=== PATIENT | female | born 1960 | race Caucasian/White ===

== ENCOUNTER → 2016-12-11 | Outpatient (CLI) | payer OTHER ==
--- NOTE | 2016-12-11 11:05 | MRI ---
Study: MRI of the right wrist. MRI of the right hand Indication: RT WRIST PAIN; HAND PAIN Technique: Multiplanar, multi sequence MRI of the right wrist and MRI of the right hand were obtained without intravenous contrast. Comparison: None. Findings: No acute fracture or osseous contusion of the right hand or wrist. Severe 1st CMC joint osteoarthritis with complete grade 4 chondral loss. There are patchy areas of cortical remodeling and subchondral cystic change. Associated small joint effusion noted as well. In addition, there is mild to moderate osteoarthritic change at the articulation of the base of the 2nd metacarpal with the ulnar margin of the trapezium as well as at its articulation with the trapezoid. Degenerative partial-thickness tearing central substance scapholunate ligament suspected without full-thickness transsection or widening of the interval. There is mild to moderate osteoarthritic change at the scapholunate joint. Lunotriquetral ligament intact. Perforation radial margin central substance TFC suspected. 4 mm negative ulnar variance without features of ulnar impaction. Mild distal radioulnar joint osteoarthritis. Extensor carpi ulnaris tendinosis with ulnar subluxation onto the ulnar styloid. No tear. Otherwise, extensor tendons, flexor tendons, flexor retinaculum, median nerve, and ulnar nerve are unremarkable. Mild osteoarthritis 1st MTP joint and 1st IP joint with chondral thinning and tiny joint line osteophytes. More pronounced moderate changes noted at the 5th DIP joint. No osseous erosions. Radial and ulnar collateral ligaments throughout the hand appear intact. Impression: Multifocal osteoarthritic changes throughout the hand and wrist with changes most pronounced at the 1st CMC joint where there are severe changes. No osseous erosions. No acute fracture. Degenerative partial-thickness tearing scapholunate ligament. Tiny perforation radial margin TFC. Extensor carpi ulnaris tendinosis without tear. Additional findings as above. Electronically signed by: Marcos Loyola MD 12/11/2016 11:03
== END ==
LOC: MRI 09:04
PROVIDERS: ATTEND Family Medicine
DX: M19.031 Primary osteoarthritis, right wrist (principal); M19.041 Primary osteoarthritis, right hand

== ENCOUNTER → 2016-12-12 | Outpatient (CLI) | payer OTHER ==
--- NOTE | 2016-12-12 14:35 | MRI ---
Study: MRI of the left hand. MRI of the left wrist. Indication: WRIST PAIN; HAND PAIN Technique: Multiplanar, multi sequence MRI of the left hand and MRI a left wrist were obtained without intravenous contrast. Comparison: None. Findings: Moderate severe osteoarthritis 1st CMC joint with grade 4 chondral thinning throughout the majority of the joint. Minimal subchondral marrow change trapezium. Tiny joint line osteophytes. Mild to moderate osteoarthritis STT joint noted as well. Degenerative signal scapholunate ligament without fluid-filled tear defect. Lunotriquetral ligament intact. Irregular grade 4 chondral thinning and subchondral marrow change at the lunate-capitate joint. Type 2 lunate with intervening grade 2/3 chondrosis at its articulation hamate. Mild degenerative signal TFC without tear defect. 3 mm negative ulnar variance. No features of ulnar impaction. Mild distal radioulnar joint osteoarthritis. No acute fracture or osseous contusion of the left hand or wrist. Ulnar subluxation extensor carpi ulnaris tendon noted which lies along the ulnar margin ulnar styloid with subtle tendinosis. No tear. Otherwise, extensor tendons, flexor tendons, flexor retinaculum, median nerve, and ulnar nerve are unremarkable. Mild osteoarthritis 1st MTP joint, 1st IP joint, and 2nd and 3rd DIP joints. No obvious osseous erosions. Radial and ulnar collateral ligaments of the hand are intact. Impression: Multifocal osteoarthritic changes throughout the left hand and wrist which changes most pronounced at the 1st CMC joint where there are moderate - severe changes. No acute fracture or osseous contusion. Degenerative signal scapholunate ligament without fluid-filled tear. Mild degenerative signal TFC without tear defect. Extensor carpi ulnaris tendinosis and slight ulnar subluxation without tear. Additional findings as above. Electronically signed by: Marcos Loyola MD 12/12/2016 14:32
== END ==
LOC: MRI 10:58
PROVIDERS: ATTEND Family Medicine
DX: M18.12 Unilateral primary osteoarthritis of first carpometacarpal joint, left hand (principal); M19.032 Primary osteoarthritis, left wrist

== ENCOUNTER → 2017-08-12 | Outpatient (CLI) | payer OTHER ==
--- NOTE | 2017-08-12 13:03 | RAD ---
EXAM DESCRIPTION: Wrist,Left 3 Views CLINICAL HISTORY: 57 years, Female, PAIN IN LEFT WRIST COMPARISON: None TECHNIQUE: AP/ lateral/ oblique views of the left wrist. FINDINGS: Left wrist study shows no fracture or dislocation. Carpal relationships are well-maintained. No significant arthritic changes are observed. IMPRESSION: 1. No acute abnormality of the left wrist. Electronically signed by: Finesse Estevez MD 08/12/2017 1:01 PM CDT
== END | disposition home or self-care (01) ==
LOC: RAD 09:05
PROVIDERS: ATTEND Orthopaedic Surgery
DX: M25.532 Pain in left wrist (principal)

== ENCOUNTER → 2017-08-26 | Outpatient (CLI) | payer OTHER ==
--- NOTE | 2017-08-26 13:01 | RAD ---
Frontal, lateral, and oblique views of the left hand. Indication:CLOSED FX OF METACARPAL BONE Comparison: August 12, 2017. IMPRESSION: No acute fracture or malalignment of the left hand. Soft tissues are intact without radiopaque foreign body. Electronically signed by: Marcos Loyola MD 08/26/2017 1:00 PM CDT
== END | disposition home or self-care (01) ==
LOC: RAD 07:37
PROVIDERS: ATTEND Orthopaedic Surgery
DX: S62.305D Unspecified fracture of fourth metacarpal bone, left hand, subsequent encounter for fracture with routine healing (principal); S62.307D Unspecified fracture of fifth metacarpal bone, left hand, subsequent encounter for fracture with routine healing

== ENCOUNTER → 2017-09-05 | Outpatient (CLI) | payer OTHER ==
--- NOTE | 2017-09-06 07:49 | MAM ---
EXAM DESCRIPTION: 3D Screening BILATERAL CLINICAL HISTORY: 57 yearsFemaleSCREENING . No complaints. Mother with breast cancer. Postmenopausal. No HRT. Bilateral benign biopsies. COMPARISON: 2-D digital screening bilateral study 09/04/2016. Also 08/23/2015. Report from prior examination also reviewed. TECHNIQUE: Bilateral CC and MLO projection full-field images, 3-D tomosynthesis digital mammographic technique. Also bilateral synthesized CC/ MLO full-field images. CAD not utilized. FINDINGS: The breast parenchymal density pattern is: Heterogeneously dense breast tissue, which may obscure small masses. No skin thickening or nipple retraction bilateral solitary microcalcifications. A benign appearing group is visible in the central right breast. Benign-appearing groups in the upper outer quadrant of the left breast in the anterior breast near the posterior nipple line. Right axillary lymph node. No focal, stellate mass or density, focal asymmetry , and no suspicious microcalcifications bilaterally. Stable mammograms compared to prior study (August 2015), taking into account differences in mammographic technique IMPRESSION: BI-RADS CATEGORY: 2 - BENIGN FINDINGS. FOLLOW UP: Routine digital bilateral screening, one year interval from September 2017. Written communication explaining the IMPRESSION and follow-up, will be mailed to the patient and referring health care provider. According to the [employer], yearly mammograms are recommended starting at age 40 and continuing as long as a woman is in good health. Any breast change noted on a breast self-exam should be reported promptly to the patient's healthcare provider. Breast MRI is recommended for women with an approximately 20-25% or greater lifetime risk of breast cancer, including women with a strong family history of breast or ovarian cancer and women who have been treated for Hodgkin's disease. A negative mammographic report should not delay tissue diagnosis in patients with significant clinical history or physical findings. Extremely dense breast tissue limits the sensitivity of digital mammography. Electronically signed by: Julio César Mcnally MD 09/06/2017 7:48 AM CDT
== END | disposition home or self-care (01) ==
LOC: MAMMO 10:30
PROVIDERS: ATTEND Family Medicine
DX: Z12.31 Encounter for screening mammogram for malignant neoplasm of breast (principal)
CPT/HCPCS: 77063; G0202

== ENCOUNTER → 2017-09-16 | Outpatient (CLI) | payer OTHER ==
--- NOTE | 2017-09-16 11:34 | RAD ---
EXAM DESCRIPTION: Left hand, 3 views CLINICAL HISTORY: CLOSED FRACTURE OF METACARPAL BONE FINDINGS/ IMPRESSION: Comparison 08/26/2017 Previous study demonstrated a fracture of the base of the fifth metacarpal epiphysis. There is some overlap with the hamate but the fracture is faintly seen on frontal radiograph. There is sclerosis as a manifestation of healing No acute fracture or osteochondral lesion elsewhere throughout the hand Electronically signed by: Finesse Covarrubias MD 09/16/2017 11:33 AM CDT
== END | disposition home or self-care (01) ==
LOC: RAD 07:35
PROVIDERS: ATTEND Orthopaedic Surgery
DX: S62.307D Unspecified fracture of fifth metacarpal bone, left hand, subsequent encounter for fracture with routine healing (principal)

== ENCOUNTER → 2017-10-12 | Outpatient (CLI) | payer OTHER | END | disposition home or self-care (01) | LOC: GMA 14:53 | PROVIDERS: ATTEND Nurse Practitioner Family | DX: N30.00 Acute cystitis without hematuria (principal) ==

== ENCOUNTER → 2018-03-28 | Outpatient (CLI) | payer OTHER | LOC: LAB.O 14:20 | PROVIDERS: ATTEND Specialist | DX: E03.9 Hypothyroidism, unspecified (principal); M85.80 Other specified disorders of bone density and structure, unspecified site; E55.9 Vitamin D deficiency, unspecified ==

== ENCOUNTER → 2018-09-16 | Outpatient (CLI) | payer BC | LOC: GMAL 11:15 | PROVIDERS: ATTEND Family Medicine | DX: D51.3 Other dietary vitamin B12 deficiency anemia (principal) ==

== ENCOUNTER → 2018-09-18 | Outpatient (CLI) | payer BC | LOC: GMAL 11:49 | PROVIDERS: ATTEND Family Medicine | DX: D51.3 Other dietary vitamin B12 deficiency anemia (principal) ==

== ENCOUNTER → 2018-10-10 | Outpatient (CLI) | payer BC ==
--- NOTE | 2018-10-13 16:39 | MAM ---
EXAM DESCRIPTION: 3D Screening BILATERAL : Digital Mammography. CLINICAL HISTORY: 58 years Female SCREENING . No complaints or personal history of breast cancer. Mother with breast cancer. Childbirth. Postmenopausal 13 years ago. No HRT. Prior bilateral breast biopsies. Bilateral breast reduction.. Lifetime risk of developing breast cancer (Tyrer-Cuzick model)(%): Not calculated COMPARISON: Bilateral screening digital breast tomosynthesis 09/05/2017. TECHNIQUE: Bilateral CC and MLO projection full-field images, digital tomosynthesis mammographic technique. Bilateral digital 2-D full-field MLO images. CAD not available for tomosynthesis or 2-D images. FINDINGS: The breast parenchymal density pattern is: Heterogeneously dense breast tissue, which may obscure small masses. No skin thickening or nipple retraction. Bilateral solitary microcalcifications scattered throughout the dense breast tissues. More left breast than right. Left axillary lymph nodes. No new focal, stellate mass or density, focal asymmetry , and no suspicious microcalcifications bilaterally. Stable mammograms compared to prior study. IMPRESSION: Benign exam. BIRAD CATEGORY: 2 BENIGN FINDINGS. RECOMMENDATIONS: FOLLOW UP: Routine digital bilateral mammographic screening, one year interval from October 2018. Written communication explaining the IMPRESSION and follow-up, will be mailed to the patient and referring health care provider. According to the [employer], yearly mammograms are recommended starting at age 40 and continuing as long as a woman is in good health. Any breast change noted on a breast self-exam should be reported promptly to the patient's healthcare provider. Breast MRI is recommended for women with an approximately 20-25% or greater lifetime risk of breast cancer, including women with a strong family history of breast or ovarian cancer and women who have been treated for Hodgkin's disease. A negative mammographic report should not delay tissue diagnosis in patients with significant clinical history or physical findings. Extremely dense breast tissue limits the sensitivity of digital mammography. 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
== END ==
LOC: MAMMO 13:00
PROVIDERS: ATTEND Family Medicine
DX: Z12.31 Encounter for screening mammogram for malignant neoplasm of breast (principal)

== ENCOUNTER 2019-07-23 18:29 | Emergency (ER) | payer BC ==
[2019-07-23] MEDS ORDERED: ALUM & MAG HYDROX-SIMETHICONE 30 ML, LIDOCAINE VISCOUS 2% 15 ML PO ONE ×2 (18:46)
[2019-07-23] MEDS ORDERED: ASPIRIN TABLET 325 MG TAB PO ONE (18:46)
[2019-07-23] MEDS ORDERED: LIDOCAINE HCL 2% (MOUTH-THROAT) 15 ML UD ONE (19:05)
[2019-07-23] MEDS ORDERED: ALUM & MAG HYDROX-SIMETHICONE 30 ML UD ONE (19:05)
--- NOTE | 2019-07-23 19:45 | RAD ---
PROCEDURE: XR Abdomen Series CLINICAL HISTORY: 59 years Female intermittent chest pain TECHNIQUE: One view of the chest and two views of the abdomen are provided. COMPARISON: No prior exams provided for comparison. FINDINGS: The lungs are clear without focal consolidation, effusion, or pneumothorax. The cardiomediastinal silhouette and central pulmonary vasculature are normal. Nonspecific bowel gas pattern without evidence of obstruction or free air. Pelvic phleboliths no aggressive osseous lesion. IMPRESSION: No acute findings in the chest or abdomen. Electronically signed by: Cecile Perez MD 07/23/2019 7:44 PM CDT
--- NOTE | 2019-07-23 22:25 | ED.PDOC ---
History of Present Illness - General Chief Complaint: Chest Pain/IN Stated Complaint: Chest discomfort Time Seen by Provider: 07/23/19 18:31 Source: patient Exam Limitations: no limitations - History of Present Illness Initial Comments: the patient is a 59-year-old female presenting to the emergency room secondary to atypical chest pain off and on for the last week. Most the time symptoms occur when she is lying back but sometimes when she is leaning forward. Anxiety does seem to make symptoms worse as well. Activity such as aerobic exercise or strenuous activity does not seem to make the chest pain any worse. No shortness of breath. She has been having significant anxiety and depression problems and did just recently increase her citalopram. She does have a known history of gastroesophageal reflux disease but only takes periodic medications for it. No syncope or near syncope. No palpitations. her last significant episode was approximately 4 or 5 hours prior. Timing/Duration: intermittent Severity: moderate Improving Factors: nothing Worsening Factors: other Associated Symptoms: chest pain Allergies/Adverse Reactions: Allergies NO KNOWN ALLERGY Allergy (Verified 07/23/19 18:44) Home Medications: Ambulatory Orders Citalopram Hydrobromide 20 mg PO DAILY 07/23/19 Famotidine [Pepcid Tab] 20 mg PO BID #60 tab 07/23/19 Levothyroxine Sodium [Synthroid] 88 mcg PO DAILY 07/23/19 Sucralfate Tab [Carafate Tab] 1 gm PO QID #120 tab 07/23/19 Review of Systems - Review of Systems Constitutional: States: no symptoms reported EENTM: States: no symptoms reported Respiratory: States: no symptoms reported Cardiology: States: chest pain Gastrointestinal/Abdominal: States: other - GERD Genitourinary: States: no symptoms reported Musculoskeletal: States: no symptoms reported Skin: States: no symptoms reported Neurological: States: anxiety, depressed Endocrine: States: no symptoms reported All other Systems: No Change from Baseline Past Medical History (General) - Patient Medical History Hx Stroke: No Hx Congestive Heart Failure: No Hx Thyroid Disease: Yes - Hypothyroidism Hx Diabetes: No Hx Gastroesophageal Reflux: Yes - Vaccination History Hx Influenza Vaccination: Yes - 2017 Hx Pneumococcal Vaccination: Yes - 2014 Immunizations Up to Date: Yes - Received Shingles vaccine 2014 - Social History Hx Tobacco Use: No Hx Alcohol Use: Yes - Social Family Medical History - Family History Mother Living Status: Hx Family Hypertension: Yes Hx Family Cancer: Yes - Breast Hx Family;Other: Dementia Physical Exam - Physical Exam General Appearance: Alert, Comfortable, No apparent distress Eye Exam: bilateral normal Ears, Nose, Throat: hearing grossly normal, normal ENT inspection Neck: full range of motion, supple Respiratory: lungs clear, normal breath sounds, no respiratory distress, no accessory muscle use Cardiovascular/Chest: normal peripheral pulses, regular rate, rhythm, no edema Peripheral Pulses: radial,right: 2+, radial,left: 2+, dorsalis pedis,right: 2+, dorsalis pedis,left: 2+ Gastrointestinal/Abdominal: non tender - mild epigastric discomfort palpation, soft Rectal Exam: deferred Back Exam: no CVA tenderness, no vertebral tenderness Extremity: normal range of motion, non-tender, normal inspection, no pedal edema, no calf tenderness, normal capillary refill Neurologic: service representative II-XII nml as tested, alert, oriented x 3, other - the patient is very anxious Skin Exam: normal color Comments: Vital Signs - 24 hr 07/23/19 07/23/19 18:30 19:58 Temperature 96.4 F L Pulse Rate [ 56 L 62 Apical] Respiratory 16 16 Rate Blood Pressure 172/90 145/89 [Left Arm] O2 Sat by Pulse 99 99 Oximetry Progress - Progress Progress: 07/23/19 22:27 the patient is a 59-year-old female presenting to the emergency room secondary to an atypical pattern chest pain intermittent over the last week. Based upon her workup here and the history I believe her symptoms are most likely from gastritis and reflux. She is going to be written for Pepcid and Carafate for the next 3 weeks. This may have been triggered by an increase in her citalopram dose. If symptoms persist or worsen then she may need further evaluation. she is chest pain-free at this time. ER warnings were given. Follow-up with primary care doctor early this coming week. - Results/Orders Results/Orders: 07/23/19 18:46 Telemetry .CONTINUOUS 07/23/19 19:00 EKG STAT shows sinus bradycardia at 56 bpm. Normal axis. Normal R-wave progression. No ST segment or T-wave changes indicative of ischemia. Normal QT interval. acute abdominal series appears benign. Laboratory Results - last 24 hr 07/23/19 07/23/19 07/23/19 12:45 18:51 18:51 WBC 5.7 RBC 4.14 L Hgb 13.3 Hct 38.5 MCV 92.9 MCH 32.1 H MCHC 34.6 RDW 12.7 Plt Count 255 MPV 8.2 Absolute Neuts (auto) 3.10 Absolute Lymphs (auto) 1.70 Absolute Monos (auto) 0.60 Absolute Eos (auto) 0.20 Absolute Basos (auto) 0.10 Neutrophils % 55.1 Lymphocytes % 30.5 Monocytes % 9.8 H Eosinophils % 3.6 Basophils % 1.0 PT INR PTT (SP) D-Dimer, Quantitative Sodium 138 Potassium 3.6 Chloride 102 Carbon Dioxide 26 Anion Gap 13.6 BUN 21 H Creatinine 0.84 BUN/Creatinine Ratio 25.0 H Random Glucose 84 Serum Osmolality 277.8 Calcium 9.9 Magnesium 2.2 Total Bilirubin 0.8 AST 23 ALT 21 Alkaline Phosphatase 45 Creatine Kinase 98 CK-MB (CK-2) 2.1 CK-MB (CK-2) % Not Reportable Not Reportable Troponin I < 0.02 B-Natriuretic Peptide 13.0 Serum Total Protein 8.1 Albumin 4.7 Globulin 3.4 Albumin/Globulin Ratio 1.4 Amylase 33 Lipase 47 TSH 3.79 Urine Color Urine Appearance Urine pH Ur Specific [place] Urine Protein Urine Glucose (UA) Urine Ketones Urine Blood Urine Nitrite Urine Bilirubin Urine Urobilinogen Ur Leukocyte Esterase Urine RBC Urine WBC Ur Epithelial Cells Urine Bacteria 07/23/19 07/23/19 07/23/19 19:05 19:45 21:50 WBC RBC Hgb Hct MCV MCH MCHC RDW Plt Count MPV Absolute Neuts (auto) Absolute Lymphs (auto) Absolute Monos (auto) Absolute Eos (auto) Absolute Basos (auto) Neutrophils % Lymphocytes % Monocytes % Eosinophils % Basophils % PT 10.6 INR 1.06 PTT (SP) 29.4 D-Dimer, Quantitative 0.35 Sodium Potassium Chloride Carbon Dioxide Anion Gap BUN Creatinine BUN/Creatinine Ratio Random Glucose Serum Osmolality Calcium Magnesium Total Bilirubin AST ALT Alkaline Phosphatase Creatine Kinase 89 CK-MB (CK-2) 1.8 CK-MB (CK-2) % Troponin I < 0.02 B-Natriuretic Peptide Serum Total Protein Albumin Globulin Albumin/Globulin Ratio Amylase Lipase TSH Urine Color Yellow Urine Appearance Clear Urine pH 7.0 Ur Specific [place] 1.010 Urine Protein Negative Urine Glucose (UA) Negative Urine Ketones Negative Urine Blood Negative Urine Nitrite Negative Urine Bilirubin Negative Urine Urobilinogen 0.2 Ur Leukocyte Esterase Negative Urine RBC 0 Urine WBC 0 Ur Epithelial Cells 0 Urine Bacteria 0 Departure - Departure Clinical Impression: Atypical chest pain Disposition: Discharge to Home or Self Care Condition: Fair Departure Forms: ED Discharge - Pt. Copy, Patient Portal Self Enrollment Diet: bland diet Activity: increase activity as tolerated Referrals: Kody Curtis III, MD [Primary Care Provider] - 1-2 Weeks Prescriptions: Famotidine [Pepcid Tab] 20 mg PO BID #60 tab Sucralfate Tab [Carafate Tab] 1 gm PO QID #120 tab Home Medications: Ambulatory Orders Citalopram Hydrobromide 20 mg PO DAILY 07/23/19 Famotidine [Pepcid Tab] 20 mg PO BID #60 tab 07/23/19 Levothyroxine Sodium [Synthroid] 88 mcg PO DAILY 07/23/19 Sucralfate Tab [Carafate Tab] 1 gm PO QID #120 tab 07/23/19 Additional Instructions: the patient is a 59-year-old female presenting to the emergency room secondary to an atypical pattern chest pain intermittent over the last week. Based upon her workup here and the history I believe her symptoms are most likely from gastritis and reflux. She is going to be written for Pepcid and Carafate for the next 3 weeks. 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 This may have been triggered by an increase in her citalopram dose. If symptoms persist or worsen then she may need further evaluation. she is chest pain-free at this time. ER warnings were given. Follow-up with primary care doctor early this coming week.
[2019-07-23 23:06] VITALS: O2SAT 98
[2019-07-23 23:07] VITALS: TEMP 98
[2019-07-23 23:09] VITALS: BP 137/84
== END 2019-07-23 22:55 | disposition home or self-care (01) ==
LOC: ER 18:29
DX: R07.89 Other chest pain (principal); R00.1 Bradycardia, unspecified; R10.13 Epigastric pain; K21.9 Gastro-esophageal reflux disease without esophagitis; E03.9 Hypothyroidism, unspecified; F41.9 Anxiety disorder, unspecified; F32.9 Major depressive disorder, single episode, unspecified; Z79.899 Other long term (current) drug therapy

== ENCOUNTER → 2019-10-06 | Outpatient (CLI) | payer BC | LOC: GMAL 10:56 | PROVIDERS: ATTEND Family Medicine | DX: Z00.01 Encounter for general adult medical examination with abnormal findings (principal) ==

== ENCOUNTER → 2019-10-13 | Outpatient (CLI) | payer BC ==
--- NOTE | 2019-10-13 21:04 | MAM ---
EXAM DESCRIPTION: 3D Screening BILATERAL : Digital Mammography. CLINICAL HISTORY: 59 years Female ANNUAL SCREENING . No complaints. No personal history of breast cancer. Mother with breast cancer age 76. Remote family history of breast cancer. Menarche age 12. Childbirth. Postmenopausal 10+ years. No HRT. Bilateral benign breast biopsy. Bilateral breast reduction. Lifetime risk of developing breast cancer (Tyrer-Cuzick model)(%): 21.4. COMPARISON: Bilateral screening digital breast tomosynthesis 10 October 2018 and 05 September 2017.. TECHNIQUE: Bilateral CC and MLO projection full-field images, digital tomosynthesis mammographic technique. Bilateral digital 2-D full-field MLO images. CAD not available for tomosynthesis or 2-D images. FINDINGS: The breast parenchymal density pattern is: Heterogeneously dense breast tissue, which may obscure small masses. No skin thickening or nipple retraction. Multiple bilateral microcalcifications scattered throughout the dense fibroglandular tissues. Bilateral axillary lymph nodes. Calcifications appear more grouped in the lower anterior left breast at the 5:00-6:00 position in the posterior lateral left breast, 3:00-4:00 Position. Groups of microcalcifications in the 11:00-12:00 position of the anterior middle third of the right breast and the 5:00-6:00 position of the posterior third of the right breast. IMPRESSION: BI-RADS CATEGORY: 0 - INCOMPLETE- Need additional imaging evaluation. FOLLOW-UP: Recall for additional imagin-D spot magnification in orthogonal planes bilateral breast as described. Optional directed bilateral ultrasound if indicated by diagnostic images.. Written communication concerning the IMPRESSION and Follow-up, will be mailed to the patient and referring health care provider. Electronically signed by: Julio César Mcnally MD 10/13/2019 9:02 PM [facility]
== END ==
LOC: MAMMO 08:00
PROVIDERS: ATTEND Family Medicine
DX: Z12.31 Encounter for screening mammogram for malignant neoplasm of breast (principal)

== ENCOUNTER → 2019-10-19 | Outpatient (CLI) | payer BC ==
--- NOTE | 2019-10-21 10:53 | MAM ---
EXAM DESCRIPTION: 3D Diagnostic, Bilateral: Digital Mammography CLINICAL HISTORY: 59 yearsFemaleABNORMAL MAMMO bilateral microcalcifications in groups possibly abnormal. Lifetime risk of developing breast cancer (Tyrer-Cuzick model) percentage is 21.4. COMPARISON: Bilateral screening digital breast tomosynthesis 13 October 2019 TECHNIQUE: Bilateral LM projection full-field images, digital mammographic tomosynthesis technique. Bilateral 2-D digital full-field MLO images. CC and LM projections. Bilateral spot magnification in the regions of interest CC and MLO projections. CAD not available. FINDINGS: The breast parenchymal density pattern is: Heterogeneously dense breast tissue, which may obscure small masses. No skin thickening or nipple retraction multiple microcalcifications with grouping at the 5:00 6:00 position anterior left breast, 3:00-4:00 position posterior lateral left breast, and 11:00-12:00 position anterior middle third right breast, and 5:00-6:00 position posterior third of the right breast. These groups are most likely benign. No focal, stellate mass or density, or focal asymmetry. IMPRESSION: BI-RADS CATEGORY: 3 - PROBABLY BENIGN. Management: Short interval (6-month) bilateral diagnostic breast digital mammographic follow-up.. Because of elevated lifetime risk of developing breast cancer (21.4%), consider Breast MRI without/with IV Gadolinium. Note: "Breast MRI is recommended by [employer], for women with an approximately 20-25% or greater lifetime risk of breast cancer, including women with a strong family history of breast or ovarian cancer and women who have been treated for Hodgkin's disease." The FINDINGS and the FOLLOW-UP plan were reviewed in person with the patient, by the food production machine operator, after the examination. Written communication explaining the IMPRESSION and FOLLOW-UP will be mailed to the patient and referring care provider. 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
== END ==
LOC: MAMMO 09:00
PROVIDERS: ATTEND Family Medicine
DX: R92.8 Other abnormal and inconclusive findings on diagnostic imaging of breast (principal)
CPT/HCPCS: 77066; G0279

== ENCOUNTER → 2020-04-18 | Outpatient (CLI) | payer BC ==
--- NOTE | 2020-04-19 11:24 | MAM ---
EXAM DESCRIPTION: 3D Diagnostic, Bilateral: Digital Mammography CLINICAL HISTORY: 59 yearsFemale6 month follow up groups of microcalcifications right breast. No complaints and no personal history of breast cancer. Mother with breast cancer 75 and remote family history of breast cancer. Menarche age 12. age 25. Menopause age 47. Bilateral breast reduction. No HRT. Lifetime risk of developing breast cancer (Tyrer-Cuzick model) percentage is 21.4. COMPARISON: Bilateral diagnostic digital breast tomosynthesis October 2019... TECHNIQUE: Bilateral LM and CC projection full-field images, digital mammographic tomosynthesis technique. Bilateral 2-D digital full-field images. LM and CC projections. Multiple bilateral spot magnification 2-D digital images in the CC and LM projections. CAD available for 2-D images. FINDINGS: The breast parenchymal density pattern is: Heterogeneously dense breast tissue, which may obscure small masses. No skin thickening or nipple retraction again noted are microcalcifications in groups at the 5:00 to 6:00 position of the anterior left breast, 3:00 to 4:00 position posterior lateral left breast. Also groups of microcalcifications 11:00 to 12:00 anterior middle third right breast and 5:00 to 6:00 posterior third right breast. No new focal, stellate mass or density, focal asymmetry bilaterally. Stable mammograms compared to prior study, taking into account differences in mammographic technique IMPRESSION: Multiple groups of microcalcifications bilaterally, stable and probably benign. BI-RADS CATEGORY: 3 - PROBABLY BENIGN. RECOMMENDATIONS: FOLLOW-UP: Short interval (6-month) bilateral diagnostic digital breast tomosynthesis.. The FINDINGS and the FOLLOW-UP plan were reviewed in person with the patient after the examination. Written communication explaining the IMPRESSION and FOLLOW-UP will be mailed to the patient and referring care provider. Electronically signed by: Julio César Mcnally MD 04/19/2020 11:22 AM CDT
== END ==
LOC: MAMMO 14:06
PROVIDERS: ATTEND Family Medicine
DX: R92.1 Mammographic calcification found on diagnostic imaging of breast (principal)
CPT/HCPCS: 77066; G0279

== ENCOUNTER → 2020-10-10 | Outpatient (CLI) | payer BC | LOC: GMAL 10:47 | PROVIDERS: ATTEND Family Medicine | DX: D51.3 Other dietary vitamin B12 deficiency anemia (principal); E03.9 Hypothyroidism, unspecified; E55.9 Vitamin D deficiency, unspecified ==

== ENCOUNTER 2020-11-04 11:54 | Emergency (ER) | payer BC ==
[2020-11-04] MEDS ORDERED: SODIUM CHLORIDE 0.9% (FLUSH) 10 ML SYG IV PRN (11:56)
--- NOTE | 2020-11-04 11:57 | ED.PDOC ---
History of Present Illness - General Time Seen by Provider: 11/04/20 11:56 Source: patient - History of Present Illness Initial Comments: 60-year-old female with past medical history of GERD who presents with chief complaint of chest pain. 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 Reports history of similar symptoms in the past which she thinks is likely esophageal spasms but has never sought evaluation. No known cardiac history. She does not take any blood pressure medications. Denies any dyspnea, cough, fevers, chills, abdominal pain, nausea/vomiting/diarrhea, leg swelling. She did have slight sweating in the palms with the episode which is now resolved. Pain resolved shortly after arrival to the ED with rest alone w/o any intervention. Allergies/Adverse Reactions: Allergies NO KNOWN ALLERGY Allergy (Verified 07/23/19 18:44) Home Medications: Ambulatory Orders Citalopram Hydrobromide 20 mg PO DAILY 07/23/19 Famotidine [Pepcid Tab] 20 mg PO BID #60 tab 07/23/19 Levothyroxine Sodium [Synthroid] 88 mcg PO DAILY 07/23/19 Sucralfate Tab [Carafate Tab] 1 gm PO QID #120 tab 07/23/19 Review of Systems - Review of Systems Review of Systems: 11/04/20 15:15 as per HPI All other Systems: Reviewed and Negative Past Medical History (General) - Patient Medical History Hx Stroke: No Hx Congestive Heart Failure: No Hx Thyroid Disease: Yes - Hypothyroidism Hx Diabetes: No Hx Gastroesophageal Reflux: Yes - Vaccination History Hx Influenza Vaccination: Yes - 2017 Hx Pneumococcal Vaccination: Yes - 2014 - Social History Hx Tobacco Use: No Hx Alcohol Use: Yes - Social Family Medical History - Family History Mother Living Status: Hx Family Hypertension: Yes Hx Family Cancer: Yes - Breast Hx Family;Other: Dementia Physical Exam - Physical Exam General Appearance: Alert, Comfortable, No apparent distress Eye Exam: bilateral normal Ears, Nose, Throat: hearing grossly normal, normal ENT inspection, normal pharynx Neck: non-tender, full range of motion, supple, normal inspection Respiratory: chest non-tender, lungs clear, normal breath sounds, no respiratory distress, no accessory muscle use Cardiovascular/Chest: normal peripheral pulses, regular rate, rhythm, no edema, no gallop, no JVD, no murmur Peripheral Pulses: radial,right: 2+, radial,left: 2+ Gastrointestinal/Abdominal: non tender, soft, no organomegaly Back Exam: normal inspection, no vertebral tenderness Extremity: normal range of motion, non-tender, normal inspection, no pedal edema, no calf tenderness, normal capillary refill 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 Consider also ACS, pneumonia, other -Patient stable, vitals normal, no acute distress -Obtain stat cardiac work-up, if pain returns will give treatment 11/04/20 15:17 -Patient without any further pain for nearly 2 hours in the ED. She remained stable, vitals normal. Her cardiac work-up was unremarkable. Labs otherwise normal. Her heart score is 3. I discussed hospital observation versus close outpatient follow-up. Patient would like to be discharged home with close outpatient follow-up which I feel is reasonable. Discharged home in good condition, return warnings discussed at length. Gian Wilkes MD Billing #[id number] 11/04/20 11:56 Sodium Chloride 0.9% (Flush) [Saline Flush Syringe] 10 ml IV PRN PRN Pulse Oximetry Assessment DAILY 11/04/20 12:00 EKG STAT 11/04/20 13:45 EKG STAT 11/05/20 09:00 Pulse Ox Daily Laboratory Results - last 24 hr 11/04/20 11/04/20 11/04/20 12:00 12:00 12:00 WBC 5.1 RBC 4.39 Hgb 14.0 Hct 40.1 MCV 91.4 MCH 31.9 H MCHC 34.9 RDW 12.8 Plt Count 283 MPV 7.9 Absolute Neuts (auto) 3.00 Absolute Lymphs (auto) 1.40 Absolute Monos (auto) 0.40 Absolute Eos (auto) 0.20 Absolute Basos (auto) 0.10 Neutrophils % 58.0 Lymphocytes % 27.3 Monocytes % 8.6 Eosinophils % 4.9 Basophils % 1.2 Sodium 138 Potassium 3.7 Chloride 101 Carbon Dioxide 27 Anion Gap 13.7 BUN 17 Creatinine 0.86 BUN/Creatinine Ratio 19.8 Random Glucose 90 Serum Osmolality 276.8 Calcium 9.8 Total Bilirubin 1.0 AST 32 ALT 37 Alkaline Phosphatase 57 Troponin I < 0.02 B-Natriuretic Peptide 31.6 Serum Total Protein 8.5 H Albumin 5.0 Globulin 3.5 Albumin/Globulin Ratio 1.4 11/04/20 13:40 WBC RBC Hgb Hct MCV MCH MCHC RDW Plt Count MPV Absolute Neuts (auto) Absolute Lymphs (auto) Absolute Monos (auto) Absolute Eos (auto) Absolute Basos (auto) Neutrophils % Lymphocytes % Monocytes % Eosinophils % Basophils % Sodium Potassium Chloride Carbon Dioxide Anion Gap BUN Creatinine BUN/Creatinine Ratio Random Glucose Serum Osmolality Calcium Total Bilirubin AST ALT Alkaline Phosphatase Troponin I < 0.02 B-Natriuretic Peptide Serum Total Protein Albumin Globulin Albumin/Globulin Ratio - EKG/XRAY/CT EKG: Sinus - Normal sinus rhythm, heart rate 55, no ST elevations or Q waves noted, axis normal, intervals normal, appears unchanged from 07/23/2019 EKG XRAY: chest - No acute processes per my read - Additional EKG/XRAY/Consults EKG #2: Unchanged from - Initial Departure - Departure Clinical Impression: Esophageal spasm, Atypical chest pain Time of Disposition: 15:19 Disposition: Discharge to Home or Self Care Condition: Good Instructions: Chest Pain (DC) Diet: resume usual diet Activity: increase activity as tolerated Referrals: Kody Curtis III, MD [Primary Care Provider] - 1-2 Weeks Home Medications: Ambulatory Orders Citalopram Hydrobromide 20 mg PO DAILY 07/23/19 Famotidine [Pepcid Tab] 20 mg PO BID #60 tab 07/23/19 Levothyroxine Sodium [Synthroid] 88 mcg PO DAILY 07/23/19 Sucralfate Tab [Carafate Tab] 1 gm PO QID #120 tab 07/23/19 Additional Instructions: Remain well-hydrated and gradually advance your diet and activity level as tolerated. Continue taking [id number] medications as needed for pain such as Tylenol or ibuprofen. Return to the ED if you develop new or concerning symptoms such as worsening or changing chest pain, shortness of breath, etc. Follow-up with your primary care doctor is recommended in the next 1 to 2 weeks for repeat evaluation or sooner as needed.
[2020-11-04 12:27] VITALS: TEMP 97.6; O2SAT 99
--- NOTE | 2020-11-04 13:53 | RAD ---
EXAM DESCRIPTION: Chest,1 View CLINICAL HISTORY: Chest pain COMPARISON: January 18, 2011 TECHNIQUE: One view radiograph of the chest FINDINGS: Cardiac silhouette shows normal heart size. Pulmonary vascularity is within normal limits. Lungs show no confluent infiltrates. No pleural effusion. No pneumothorax. No acute osseous abnormality. IMPRESSION: No acute cardiopulmonary process. Electronically signed by: Kody Monroy MD 11/04/2020 1:51 PM [facility]
[2020-11-04 16:01] VITALS: BP 130/76
== END 2020-11-04 15:30 | disposition home or self-care (01) ==
LOC: ER 11:54
DX: R07.89 Other chest pain (principal); K22.4 Dyskinesia of esophagus; K21.9 Gastro-esophageal reflux disease without esophagitis; E03.9 Hypothyroidism, unspecified; Z79.899 Other long term (current) drug therapy

== ENCOUNTER → 2020-12-23 | Outpatient (CLI) | payer BC ==
--- NOTE | 2020-12-23 17:07 | MAM ---
EXAM DESCRIPTION: 3D Diagnostic, Bilateral: Digital Mammography CLINICAL HISTORY: 60 yearsFemaleANNUAL SCREENING follow-up microcalcifications. No complaints. Mother with breast cancer age 75. Remote family history of breast cancer. Menarche age 12. Childbirth 89. Menopause age 47. No HRT.. Lifetime risk of developing breast cancer (Tyrer-Cuzick model) percentage is 13.5 COMPARISON: Bilateral diagnostic digital breast tomosynthesis April 2020 and October 2019.. . TECHNIQUE: Bilateral LM, CC, and MLO projection full-field images, LM and CC spot compression: digital mammographic tomosynthesis technique. Bilateral 2-D digital full-field MLO images. COOPER, CC, and MLO projections. 2-D LM and CC spot compression and spot magnification. CAD not available. FINDINGS: The breast parenchymal density pattern is: Heterogeneously dense breast tissue, which may obscure small masses. Bilateral diffuse microcalcifications associated with the dense fibroglandular tissues. Grouping of the microcalcifications is present in the anterior left breast at 5:00-6:00, posterior lateral left breast at 3:00-4:00, anterior third right breast 11:00-12:00, and posterior third of the right breast 5:00-6:00. Stable appearance since the prior study. No skin thickening or nipple retraction No new focal, stellate mass or density, focal asymmetry , and no new suspicious microcalcifications bilaterally. IMPRESSION: BI-RADS CATEGORY: 3 - PROBABLY BENIGN. RECOMMENDATIONS: FOLLOW-UP: Short interval (6-month) bilateral digital diagnostic 2-D and tomosynthesis images. The FINDINGS and the FOLLOW-UP plan were reviewed by the protein scientist with the patient after the examination. Written communication explaining the IMPRESSION and FOLLOW-UP will be mailed to the patient and referring care provider. Electronically signed by: Julio César Mcnally MD 12/23/2020 5:05 PM [facility]
== END ==
LOC: MAMMO 12:50
PROVIDERS: ATTEND Family Medicine
DX: R92.8 Other abnormal and inconclusive findings on diagnostic imaging of breast (principal)
CPT/HCPCS: 77066; G0279